=== PATIENT | female | born 1945 | race Caucasian/White ===

== ENCOUNTER 2017-04-26 15:05 | Emergency (ER) | payer OTHER ==
[2017-04-26 17:52] VITALS: BP 158/78
[2017-04-26] MEDS ORDERED: Amoxicillin/Clavulanate TAB* 875 MG PO ONE (18:12)
[2017-04-26] MEDS ORDERED: Tetan/Diph/Pertus SYR(Tdap)* 0.5 ML SYR(BOOSTRIX) use SYR IM ONE (18:13)
--- NOTE | 2017-04-26 18:20 | UC ---
Bite Injury/Animal HPI - HPI Summary HPI Summary: 71 yo female s/p dog bite to right hand about 2 PM she is right handed tetanus not utd dog may have been unvaccinated dog apparently being sent to [place] to be put down pt not a diabetic - History of Current Complaint Chief Complaint: UCBiteInjury Stated Complaint: RIGHT HAND DOG BITE Time Seen by Provider: 04/26/17 17:54 Hx Obtained From: Patient Hx Last Menstrual Period: n/a Severity Currently: Mild Severity Initially: Moderate Pain Intensity: 2 Pain Scale Used: 0-10 Numeric Onset/Duration: Sudden Onset Type of Bite: Animal Has Animal Been Immunized?: No Character: Puncture Aggravating Factor(s): Nothing Alleviating Factor(s): Rest Associated Signs And Symptoms: Positive: Negative Hx of Bite: Provoked by: - trying to move dog Animal Control Notified: Yes - Allergies/Home Medications Allergies/Adverse Reactions: Allergies Allergy/AdvReac Type Severity Reaction Status Date / Time No Known Allergies Allergy Verified 04/26/17 17:41 PMH/Surg Hx/FS Hx/Imm Hx Previously Healthy: Yes Cardiovascular History: Hypertension - Surgical History Surgical History: Yes Surgery Procedure, Year, and Place: prolapse uterus- removal - Family History Known Family History: Positive: Unknown - pt adopted - Social History Alcohol Use: None Substance Use Type: None Smoking Status (MU): Never Smoked Tobacco Review of Systems Constitutional: Negative Skin: Negative Eyes: Negative ENT: Negative Respiratory: Negative Cardiovascular: Negative Gastrointestinal: Negative Genitourinary: Negative Motor: Negative Neurovascular: Negative Musculoskeletal: Negative Neurological: Negative Psychological: Negative Is Patient Immunocompromised?: No All Other Systems Reviewed And Are Negative: Yes Physical Exam Triage Information Reviewed: Yes Appearance: Well-Appearing, No Pain Distress, Well-Nourished Vital Signs: Initial Vital Signs Temp 98.7 F 04/26/17 17:42 Pulse 83 04/26/17 17:42 Resp 18 04/26/17 17:42 BP 158/78 04/26/17 17:42 Pulse Ox 100 04/26/17 17:42 Vital Signs Reviewed: Yes Eyes: Positive: Conjunctiva Clear ENT: Negative: Nasal congestion, Nasal drainage, Trismus, Muffled voice, Hoarse voice Neck: Positive: Supple Respiratory: Positive: Lungs clear, Normal breath sounds, No respiratory distress Cardiovascular: Positive: RRR Neurological Exam: Normal Neurological: Positive: Alert Psychological Exam: Normal Bite Injury Course/Dx - Differential Dx/Diagnosis Provider Diagnoses: dog bite right hand Discharge - Discharge Plan Condition: Stable Disposition: HOME Prescriptions: Amoxicillin/Clavulanate TAB* [Augmentin TAB 875*] 875 mg PO BID #10 tab Patient Education Materials: Animal Bite (ED) Referrals: SHIRA Cortes [Primary Care Provider] - If Needed Additional Instructions: warm soapy soaks 2x day antibiotic ointment dressing elevate elevate recheck for concerns of infection recheck in 5 days if not better Images Hands: 1 - 5 mm long superfical lac 2 - 3mm superficial PW
== END 2017-04-26 18:40 | disposition home or self-care (01) ==
LOC: UCCORT 15:05
DX: S61.451A Open bite of right hand, initial encounter (principal); I10 Essential (primary) hypertension; W54.0XXA Bitten by dog, initial encounter; Y92.9 Unspecified place or not applicable
CPT/HCPCS: 90471; 90715; 99213; A9270-GY; G0463